=== PATIENT | male | born 1945 | race Caucasian/White ===

== ENCOUNTER → 2019-12-19 | Outpatient (CLI) | payer MEDICARE, OTHER ==
--- NOTE | 2019-12-19 09:24 | CT ---
EXAMINATION TYPE: CT angio abdomen pelvis DATE OF EXAM: 12/19/2019 COMPARISON: None HISTORY: AAA CT DLP: 5.6 mGycm CONTRAST: CTA abdominal aorta with 3-D reconstruction is performed without Oral Contrast and without and with IV Contrast, patient injected with 100 mL of Isovue 370. Contrast CTA of the abdominal aorta was performed from the lung bases through the base of the pelvis. 3-D reconstruction imaging obtained at a separate workstation. CONTRAST CT ABDOMEN AND PELVIS ABDOMINAL AORTA: Infrarenal abdominal aortic aneurysm measuring 4.3 cm AP dimension. Mild mural throm bus seen. No complicating factors such as dissection. Celiac, SMA and CHRIS vessels are patent as are t he renal arteries. Atheromatous change at the origin of the left renal artery. No dissection. Iliac vessels are symmetric and patent. LIVER/GB- No significant abnormality is seen. There is evidence of cholelithiasis. PANCREAS- No significant abnormality is seen. SPLEEN- No significant abnormality is seen. ADRENALS- No significant abnormality is seen. KIDNEYS/BLADDER- No significant abnormality is seen. BOWEL-moderate sigmoid diverticulosis without diverticulitis. GENITAL ORGANS: No gross abnormality seen. LYMPH NODES- No greater than 1cm abdominal or pelvic lymph nodes are appreciated. OSSEOUS STRUCTURES- No significant abnormality is seen. OTHER- No significant abnormality is seen. IMPRESSION- Uncomplicated infrarenal abdominal aortic aneurysm.
== END | disposition home or self-care (01) ==
LOC: RADCTMAIN 07:38
PROVIDERS: ATTEND Thoracic Surgery (Cardiothoracic Vascular Surgery)
DX: I71.4 Abdominal aortic aneurysm, without rupture (principal)
CPT/HCPCS: 82565; 84520; 36415; 74174; Q9967

== ENCOUNTER → 2022-07-24 | Outpatient (CLI) | payer MEDICARE, OTHER ==
--- NOTE | 2022-07-24 14:50 | CT ---
EXAMINATION TYPE: CT angio abdomen pelvis CT DLP: 2026.2 mGycm, Automated exposure control for dose reduction was used. DATE OF EXAM: 07/24/2022 2:26 PM COMPARISON: CTA abdomen pelvis 07/24/2022 CLINICAL INDICATION:Male, 76 years old with history of I71.4 INFRARENAL AAA; Abdominal aortic aneurys m TECHNIQUE: CTA abdominal aorta with 3-D reconstruction is performed without Oral Contrast and withou t and with IV Contrast, patient injected with 100 mL of Isovue 370. Contrast CTA of the abdominal aorta was performed from the lung bases through the base of the pelvis. 3-D reconstruction imaging obtained at a separate workstation. FINDINGS: CTA Abdomen and pelvis: Infrarenal abdominal aortic aneurysm has increased in size measuring 5.8 x 5. 7 cm in AP by transverse dimensions. Previously measured up to 4.3 cm in AP dimension. No complicatin g factors such as dissection. Celiac, SMA and CHRIS vessels are patent as are the renal arteries. Mild atelectatic calcification at the origin of these vessels. The bilateral iliac vessels are patent with atherosclerotic calcification. VISCERA: The liver, spleen, adrenal glands, kidneys, pancreas, and gallbladder are not optimally enha nced due the arterial phase utilized. LIVER: Unremarkable GALLBLADDER AND BILE DUCTS: Contracted gallbladder with cholelithiasis. PANCREAS: Unremarkable. SPLEEN: Scattered calcified granulomas. ADRENAL GLANDS: Unremarkable. KIDNEYS AND URETERS: No evidence of hydronephrosis or renal calculus. 2.5 cm heterogenous enhancing m ass within the mid to lower pole right kidney (series 6, image 112). Retrospectively this appears to be stable to marginally increase in size from prior examination 2019. The kidneys enhance symmetrical ly. Medial right mid kidney stable 1.3 cm cyst. PELVIS BLADDER: Unremarkable REPRODUCTIVE: Prostate is enlarged in size measuring 5.0 cm in transverse dimension. ABDOMEN & PELVIS STOMACH AND BOWEL: Stomach and duodenum are unremarkable. Pancolonic diverticulosis without evidence for acute diverticulitis. The appendix is within normal limits. No evidence of bowel obstruction. PERITONEUM: No evidence of pneumoperitoneum or free fluid. VASCULATURE: No evidence of aortic aneurysm. MUSCULOSKELETAL: No acute osseous abnormalities. No aggressive osseous lesions. Flowing anterior oste ophytosis of the thoracolumbar spine consistent with DISH. Multilevel degenerative changes of visuali zed spine with prominent anterior osteophytes at L3-L5. LYMPH NODES: No gross evidence for lymphadenopathy. SOFT TISSUE/ABDOMINAL WALL: Fat filled left inguinal hernia. LOWER CHEST: Mild cardiomegaly. Moderate coronary artery calcifications. The visualized lungs are barbara ar. IMPRESSION 1. Increased size of infrarenal abdominal aortic aneurysm measuring up to 5.8 cm, previously 4.3 cm. Vascular surgery consultation is recommended. 2. Right renal heterogenous enhancing mass measuring up to 2.5 cm. This is suspicious for renal cell carcinoma. Urology consult is recommended. 3. Pancolonic diverticulosis without evidence for acute diverticulitis. 4. Cholelithiasis.
== END | disposition home or self-care (01) ==
LOC: RADCTMAIN 09:00
PROVIDERS: ATTEND Surgery
DX: I71.43 Infrarenal abdominal aortic aneurysm, without rupture (principal); K57.30 Diverticulosis of large intestine without perforation or abscess without bleeding; K80.20 Calculus of gallbladder without cholecystitis without obstruction; I71.40 Abdominal aortic aneurysm, without rupture, unspecified; N28.89 Other specified disorders of kidney and ureter
CPT/HCPCS: 82565; 84520; 36415; 74174; Q9967

== ENCOUNTER → 2022-09-12 | Outpatient (CLI) | payer MEDICARE, OTHER ==
[2022-09-12 09:30] LABS: HCT 42.4 % (39.0-53.0); HGB 14.2 gm/dL (13.0-17.5); MCH 30.7 pg (25.0-35.0); MCHC 33.4 g/dL (31.0-37.0); MCV 92.1 fL (80.0-100.0); Mean Platelet Volume 7.5; Platelet Count 195 k/uL (150-450); RBC 4.61 m/uL (4.30-5.90); WBC 6.3 k/uL (3.8-10.6)
[2022-09-12 09:45] LABS: African American GFR (CKD) 81 (>60 ml/min/1.73 sqM); Anion Gap 7 mmol/L; Blood Urea Nitrogen 14 mg/dL (9-20); Carbon Dioxide 31 mmol/L (22-30); Chloride 99 mmol/L (98-107); Non-African American GFR(CKD) 70 (>60 ml/min/1.73 sqM); Potassium 4.4 mmol/L (3.5-5.1); Sodium 137 mmol/L (137-145)
== END | disposition home or self-care (01) ==
LOC: LABWHC1 09:06
PROVIDERS: ATTEND Internal Medicine Interventional Cardiology
DX: Z01.812 Encounter for preprocedural laboratory examination (principal); I34.0 Nonrheumatic mitral (valve) insufficiency; I35.1 Nonrheumatic aortic (valve) insufficiency
CPT/HCPCS: 80051; 82565; 84520; 85027

== ENCOUNTER 2022-09-15 07:44 | Day surgery (SDC) | payer MEDICARE, OTHER ==
[~2022-09-15 07:44] MED LIST: ALPRAZolam 0.25 MG TAB PO PRN; ALPRAZolam 0.5 MG TAB PO PRN; ASPIRIN 325 MG TAB PO STA; ATORVASTATIN 80 MG TAB PO STA; HEPARIN SODIUM,PORCINE 10,000 UNIT in SODIUM CHLORIDE 0.9% 1,000 ML IRRIGATION PRN; HEPARIN SODIUM,PORCINE 2,500 UNIT in SODIUM CHLORIDE 0.9% 250 ML IRRIGATION PRN; NITROGLYCERIN SL TABS 0.4 MG TAB SUBLINGUAL PRN; SODIUM CHLORIDE 0.9% 1,000 ML in EMPTY BAG 1 BAG IV SCH
[2022-09-15 08:20] VITALS: TEMP 97.4
[2022-09-15] MEDS ORDERED: HEPARIN SODIUM 1,000 UN/ML (10ML VL) ONE (09:30)
[2022-09-15] MEDS ORDERED: fentaNYL (PF) 50 MCG/ML 2 ML AMP ONE (09:30)
[2022-09-15] MEDS: BENZOCAINE SPRAY 1 CAN MUCOUS MEM ONE ×2 (09:30→09:45)
[2022-09-15] MEDS ORDERED: VERAPAMIL 2.5 MG/ML 2 ML AMP ONE (09:30)
[2022-09-15] MEDS ORDERED: SODIUM CHLORIDE 0.9% 1,000 ML IV ONE ×2 (09:37→09:38)
[2022-09-15] MEDS: fentaNYL (PF) 50 MCG/ML 2 ML AMP IVP ONE ×2 (09:45→10:08)
[2022-09-15] MEDS ORDERED: MIDAZOLAM 2 MG/2 ML VIAL IVP ONE ×2 (09:45→09:49)
[2022-09-15] MEDS ORDERED: IV FLUID CONTINUATION 950 ML IV ONE (10:00)
--- NOTE | 2022-09-15 10:01 | P.PCN ---
Date of Procedure: 09/15/22 Operative Findings: TRANSESOPHAGEAL ECHOCARDIOGRAM DRUM BUILDER: NIVIA RASCON MD, RPVI INDICATION: Valvular heart disease SEDATION: Conscious sedation COMPLICATION: None LEVEL OF SEDATION Moderate to sedation length of 12 minutes PROCEDURE DESCRIPTION: After obtaining an informed consent, the patient was brought to transesophageal echocardiogram room. Pulse oximetry and heart monitors were attached to the patient. The patient throat was sprayed using lidocaine. The patient was turned into left lateral position. After that a bite guard was placed. After an appropriate conscious sedation was initiated, the transesophageal echocardiogram was advanced through a bite guard into the mid esophagus. A 2-D echocardiogram images, color Doppler images, continuous wave images, pulse-wave images, of various cardiac structure were performed. After that the transesophageal echocardiogram probe was advanced into the stomach and fixed to obtain transgastric view was. The probe was brought into the mid esophagus. Inter-atrial septum was interrogated using 2D images, color Doppler images, and then contrast study. After that transesophageal echocardiogram was withdrawn out and upon withdrawing the descending thoracic aorta all the way up to the ar ch was evaluated. FINDING: The left ventricular dimension and systolic function appeared to be within normal limits with an ejection fraction of 50-55%. The right ventricle appeared to be of normal size and function. The left atrium and right atrium are dilated. The interatrial septum appeared to be intact. The aortic valve is trileaflet valve with evidence of severe aortic regurgitation and reversal flow in the descending aorta was identified. The mitral valve appeared to be mildly thickened with prolapsing of the posterior mitral leaflet and moderate mitral regurgitation. Normal tricuspid valve and pulmonic valve. CONCLUSION: 1. Trileaflet aortic valve with severe aortic regurgitation and evidence of reversal flow in the descending aorta 2. Prolapsing of the posterior mitral leaflet with moderate mitral regurgitation 3. Normal biventricular dimension and systolic function 4. Moderate biatrial enlargement 5. Intact interatrial septum 6. No evidence of pericardial effusion
[2022-09-15] MEDS ORDERED: LIDOCAINE 1% INJ 10MG/ML (5 ML VIAL-PF) SQ ONE (10:04)
[2022-09-15] MEDS ORDERED: VERAPAMIL SYRINGE (5 MG/10 ML) INTRAARTER ONE (10:05)
[2022-09-15] MEDS ORDERED: HEPARIN SODIUM 1,000 UN/ML (10ML VL) IVP ONE (10:07)
[2022-09-15] MEDS ORDERED: HYDROmorphone 0.5 MG/0.5 ML SYRINGE IVP ONE (10:14)
[2022-09-15] MEDS ORDERED: IOPAMIDOL-370 100ML BTL INJ ONE ×2 (10:20→10:28)
[2022-09-15] MEDS ORDERED: RX INFO: IV CONTRAST WAS GIVEN 1 EACH MISC MISCELLANE PRN (10:29)
[2022-09-15] MEDS ORDERED: SODIUM CHLORIDE 0.9% 1,000 ML IV SCH (10:30)
--- NOTE | 2022-09-15 10:36 | P.PCN ---
Date of Procedure: 09/15/22 Operative Findings: CARDIAC CATHETERIZATION PERFORMING PHYSICIAN: Alfredo Sánchez MD, RPVI PROCEDURE PERFORMED: 1. Selective right and left coronary angiogram 2. Left heart catheterization 3. FFR of the RCA 4. Aortic root angiogram INDICATION: Valvular heart disease COMPLICATION: None APPROACH: Right radial artery LEVEL OF SEDATION: Moderate with a sedation length of 23 minutes PROCEDURE DESCRIPTION: After obtaining an informed consent, the patient was brought to cardiac label cutter. Local anesthesia was performed using lidocaine subcutaneously. The right radial artery was cannulated using Seldinger technique, the guidewire passed e asily, following that we advanced a 5-[place] sheath dilator assembly, the wire and dilator were removed and sheath was flushed. Following that, 2 mg of verapamil along with 5000 unit heparin were given. Selective right and left coronary angiogram using a 6-[place] JR4 and JL 3.5 catheters. Following that we did left heart catheterization using 6-[place] pigtail catheter. Aortic root angiogram was performed using the 6-[place] pigtail catheter After that we did an FFR of the RCA The procedure was completed there was no complication. SELECTIVE CORONARY ANGIOGRAM: The right coronary artery: Large-caliber vessel and a dominant vessel. Its a calcified vessel as well. The mid RCA has intermediate lesion appears to be in the range of 60%. We did iFR and that came in to be nonischemic and 0.95 Left main: Calcified was mild disease only. Bifurcates into an LCx and LAD The left circumflex: Large-caliber vessel and a codominant vessel. The left circumflex system has mild disease only. Gives rises into an OM1 and OM 2 and both appeared to be angiographically normal The left anterior descending artery: The proximal LAD appeared to have mild disease only. The mid LAD does have a critical lesion appears to be in the range of 80-90%. The LAD distally has another critical lesion appeared to be in the range of 80-90%. The LAD gives rises into the first diagonal branch which is a large caliber vessel was mild to moderate diffuse disease and second diagonal branch which has an ostial lesion appeared to be in the range of 80-90% HEMODYNAMICS: The old the EDP was 24 mmHg was no significant gradient across aortic valve THE AORTIC ROOT ANGIOGRAM: That was performed in the TAMAZIGHT projection and using a power injection. There is 2+ aortic insufficiency identified iFR OF THE RCA After zeroing the Doppler wire and equalizing between the Doppler wire and the guiding catheter which was JR4 guiding catheter with did advanced a Doppler wire distal to the lesion in the mid RCA. We did an iFR and that came in to be mary schemic and 0.95. CONCLUSION: 1. Intermediate lesion involving the mid RCA. FFR came in to be nonischemic 2. Critical disease involving the mid and distal left anterior descending artery 3. 2+ aortic insufficiency on the aortic root angiogram
[2022-09-15] MEDS ORDERED: hydrALAZINE HCL 20 MG/ML 1 ML VIAL IVP STA (10:55)
[2022-09-15] MEDS ORDERED: hydrALAZINE HCL 20 MG/ML 1 ML VIAL ONE (11:01)
[2022-09-15 12:54] VITALS: BP 168/75; PULSE 64; RESP 18
== END 2022-09-15 13:50 | disposition home or self-care (01) ==
LOC: CATHCVL 07:44
PROVIDERS: ATTEND Internal Medicine Interventional Cardiology
DX: I08.0 Rheumatic disorders of both mitral and aortic valves (principal); Z88.0 Allergy status to penicillin
CPT/HCPCS: 93312; 93320; 93325; 93458; 93567; 93799; C1887; C1769 ×2; C1894; J2250; J0360; J2001; J3010; J1644; J1170; Q9967

== ENCOUNTER → 2023-01-10 | Outpatient (CLI) | payer MEDICARE, OTHER ==
[2023-01-10 12:44] LABS: African American GFR (CKD) >90 (>60 ml/min/1.73 sqM); Blood Urea Nitrogen 14 mg/dL (9-20); Non-African American GFR(CKD) 82 (>60 ml/min/1.73 sqM)
--- NOTE | 2023-01-11 07:48 | CT ---
EXAMINATION TYPE: CT angio abd aorta w/Runoff CT DLP: 2780.40 mGycm, Automated exposure control for dose reduction was used. DATE OF EXAM: 01/10/2023 2:23 PM COMPARISON: 07/24/2022, 12/15/2022, and 02/27/2020 CLINICAL INDICATION:Male, 77 years old with history of I71.40 ABDOMINAL AORTIC ANEURYSM; PHH, abdomin al aortic aneurysm TECHNIQUE: Multiple thin slice sub-millimeter images were obtained after administration of contrast. 3-D reconstructed images and maximum intensity projection images were obtained. CT angio abd aorta w /Runoff CT Contrast: Contrast used:100mL mL of Isovue 370 with IV Contrast, Oral contrast used: None FINDINGS: CTA Abdomen and pelvis: No evidence for intramural hematoma on noncontrast imaging. Postcontrast imag ing demonstrates aortobiiliac stent graft which appears patent. No evidence for endoleak. Celiac axis , superior mesenteric artery and bilateral renal arteries are patent. The excluded lumen of the infra renal abdominal aortic aneurysm measures up to 6.1 x 6.2 cm. This has progressed from prior on 023 where it measured 5.7 x 6.0 cm CTA Lower extremities: Right: The common femoral and superficial femoral arteries are patent. The popliteal artery is patent . Anterior and posterior tibial arteries as well as the peroneal artery are patent. The anterior tibi al artery crosses the ankle. The posterior tibial artery is diminutive and contrast is not definitive ly seen within the lumen. Left: The common femoral and superficial femoral arteries are patent. The popliteal artery is patent. Anterior and posterior tibial arteries as well as the peroneal artery are patent. The anterior tibia l artery crosses the ankle. The posterior tibial artery is diminutive and contrast is not definitivel y seen within the lumen. LOWER CHEST: No evidence of focal consolidation, pneumothorax or pleural effusion. LIVER: Unremarkable GALLBLADDER AND BILE DUCTS: Gallstone present within the lumen of the neck. PANCREAS: Unremarkable. SPLEEN: Unremarkable. ADRENAL GLANDS: Unremarkable. KIDNEYS AND URETERS: Right renal enhancing mass measuring 2.5 cm similar to prior. Simple appearing r ight renal cyst. No evidence of hydronephrosis or renal calculus. The ureters are unremarkable. PELVIS BLADDER: Unremarkable REPRODUCTIVE: Unremarkable. ABDOMEN & PELVIS STOMACH AND BOWEL: No evidence of bowel obstruction. PERITONEUM: No evidence of pneumoperitoneum or free fluid. VASCULATURE: No evidence of aortic aneurysm. MUSCULOSKELETAL: No acute osseous abnormalities LYMPH NODES: No gross evidence for lymphadenopathy. SOFT TISSUE/ABDOMINAL WALL: Fat-containing inguinal hernia on the left greater than right. IMPRESSION 1. Fusiform infrarenal aortic aneurysm with aortobiiliac stent graft in place and intact. No evidenc e for endoleak. No evidence of vascular occlusion. 2. Atherosclerotic disease involving abdominal aorta and lower extremity vasculature. 3. The anterior tibial artery crosses the ankle bilaterally, that posterior tibial arteries bilateral ly are diminutive. 4. Similar enhancing right renal mass measuring up to 2.5 cm. If not already performed urologic consu ltation recommended. 5. Cholelithiasis. 6. Colonic diverticulosis.
== END | disposition home or self-care (01) ==
LOC: RADCTMAIN 12:05
PROVIDERS: ATTEND Surgery
DX: I71.43 Infrarenal abdominal aortic aneurysm, without rupture (principal); N28.89 Other specified disorders of kidney and ureter; K80.20 Calculus of gallbladder without cholecystitis without obstruction; K57.30 Diverticulosis of large intestine without perforation or abscess without bleeding; I70.0 Atherosclerosis of aorta
CPT/HCPCS: 82565; 84520; 75635; 36415; Q9967

== ENCOUNTER → 2023-08-08 | Outpatient (CLI) | payer MEDICARE, OTHER ==
[2023-08-08 12:58] LABS: African American GFR (CKD) 82 (>60 ml/min/1.73 sqM); Blood Urea Nitrogen 18 mg/dL (9-20); Non-African American GFR(CKD) 71 (>60 ml/min/1.73 sqM)
--- NOTE | 2023-08-08 14:21 | CT ---
EXAMINATION TYPE: CT abdomen wo/w con DATE OF EXAM: 08/08/2023 COMPARISON: 01/10/2023 INDICATION: Kidney Cancer DLP: 1771.70 mGycm, Automated exposure control for dose reduction was used. CONTRAST: 100 ml mL of Isovue 300. Study performed with Oral Contrast TECHNIQUE: Axial images were obtained from above the diaphragm to the pubic rami in the axial plane a t 5 mm thick sections. Reconstructed images are reviewed on the computer in the coronal plane. FINDINGS: Limited CT sections are obtained the lung bases. The lung bases are clear. Coronary artery calcific ation is present. CT ABDOMEN: Liver: Normal Spleen: Scattered granulomata within the spleen. Pancreas: Normal Adrenal glands: The adrenal glands are normal. Gallbladder: Gallstones are present Kidneys: No masses are evident. No hydronephrosis is present. There is a small cyst on the medial m id right kidney. No renal stones are evident. Renal vascular calcifications are present Aorta: Vascular calcification is within the aorta. Extensor through a prior abdominal aortic aneurys m. Inferior vena cava: Normal. Loops of bowel within the abdomen and upper pelvis are normal. Multiple diverticuli are through the sigmoid colon. There are loops of bowel which are incompletely distended or lack oral contrast limi ting their evaluation. IMPRESSION: 1. No endovascular leak stented aorta. 2. No suspicious renal masses to suggest recurrent or metastatic neoplasm. Consider evaluation with u ltrasound. 3. Cholelithiasis
== END | disposition home or self-care (01) ==
LOC: RADCTMAIN 12:13
PROVIDERS: ATTEND Urology
DX: K80.20 Calculus of gallbladder without cholecystitis without obstruction (principal); D41.01 Neoplasm of uncertain behavior of right kidney
CPT/HCPCS: 82565; 84520; 74170; 36415; Q9967

== ENCOUNTER → 2024-07-19 | Outpatient (CLI) | payer MEDICARE, OTHER | END | disposition home or self-care (01) | LOC: RADMRIMAIN 07:37 | PROVIDERS: ATTEND Urology | DX: Z53.9 Procedure and treatment not carried out, unspecified reason (principal) ==

== ENCOUNTER → 2024-08-13 | Outpatient (CLI) | payer MEDICARE, OTHER ==
--- NOTE | 2024-08-13 18:47 | CT ---
EXAMINATION TYPE: CT chest wo con CT DLP: 452.10 mGycm, Automated exposure control for dose reduction was used. DATE OF EXAM: 08/13/2024 4:57 PM COMPARISON: CT abdomen 08/08/2023 CLINICAL INDICATION:Male, 78 years old with history of R05.9 COUGH, UNSPECIFIED; PHH, intermittent pr oductive cough for months TECHNIQUE: Multiple axial images were obtained through the chest without IV contrast. Lack of IV or o ral contrast limits evaluation of solid and hollow organ viscera. . Coronal and sagittal reformats re viewed. FINDINGS: LUNGS/ PLEURA: No pneumothorax or focal consolidation. Small left pleural effusion. Left upper lobe p erihilar calcified granulomas. AIRWAY: Patent and unremarkable.. HEART: Cardiomegaly is demonstrated with dilatation of the left ventricle and left atrium. . No peric ardial effusion. Mild coronary artery calcifications present. MEDIASTINUM: No gross evidence of adenopathy. VASCULATURE: No aortic aneurysm. Atherosclerotic calcification of the aorta and its branches. MUSCULOSKELETAL: No acute osseous abnormalities.DISH of the visualized spine. SOFT TISSUES/LYMPH NODES: Unremarkable. LOWER NECK: No significant findings. UPPER ABDOMEN: Please see CT abdomen from the same date for findings. IMPRESSION: Small left pleural effusion. No focal consolidation or suspicious airspace opacities. [facility], , 08/13/2024 6:45 PM
== END | disposition home or self-care (01) ==
LOC: RADCTMAIN 14:56
PROVIDERS: ATTEND Family Medicine
DX: D41.01 Neoplasm of uncertain behavior of right kidney (principal); J90 Pleural effusion, not elsewhere classified
CPT/HCPCS: 71250

== ENCOUNTER → 2024-08-13 | Outpatient (CLI) | payer MEDICARE, OTHER ==
[2024-08-13 16:08] LABS: African American GFR (CKD) 70 (>60 ml/min/1.73 sqM); Blood Urea Nitrogen 18 mg/dL (9-20); Non-African American GFR(CKD) 60 (>60 ml/min/1.73 sqM)
--- NOTE | 2024-08-13 21:42 | CT ---
EXAMINATION TYPE: CT abdomen wo/w con CT DLP: 1958.50 mGycm, Automated exposure control for dose reduction was used. DATE OF EXAM: 08/13/2024 4:57 PM COMPARISON: CT abdomen 08/08/2023, CTA abdominal aorta with runoff 01/10/2023, CT abdomen and pelvis 07/08, 12/19/2019 CLINICAL INDICATION:Male, 78 years old with history of D41.01 KIDNEY CANCER; tumor on right kidney TECHNIQUE: Standard CT of the abdomen before and after the uneventful administration of 80 mL of Is ovue-300 intravenously. Oral contrast was administered. Coronal and sagittal reformats were performed . FINDINGS: LOWER CHEST: Please see dedicated CT chest for findings ABDOMEN LIVER: Unremarkable GALLBLADDER AND BILE DUCTS: Cholelithiasis. No biliary ductal dilatation. PANCREAS: Unremarkable. SPLEEN: Scattered calcified granulomas. ADRENAL GLANDS: Unremarkable. KIDNEYS AND URETERS: No evidence of hydronephrosis or renal calculus. The kidneys enhance symmetrical ly. Stable medial right upper pole simple appearing renal 1.5 cm cyst. No follow-up for this simple a ppearing cyst. Stable right renal lower pole 2.5 cm enhancing lesion (series 9, image 46). Contrast i s demonstrated within both collecting systems and proximal ureters on delayed phase. Duplicated left collecting system. STOMACH AND BOWEL: Stomach and duodenum are unremarkable. Pancolonic diverticulosis without evidence for acute diverticulitis. No evidence of bowel obstruction. PERITONEUM: No evidence of pneumoperitoneum or free fluid. VASCULATURE: Postsurgical changes from aortobiiliac stent graft beginning at the hiatus. The excluded [place] aneurysm sac measures 6.2 x 6.0 cm. Previous measures 6.1 x 6.0 cm. There is hyperdensity wit hin the [place] aneurysm sac that changes from the noncontrast phase to the portal venous phase and th en to the delayed phase (series 9, image 56). Retroaortic left renal vein. MUSCULOSKELETAL: No acute osseous abnormalities. No aggressive osseous lesion. DISH of the thoracolum bar spine. Moderate multilevel degenerative disease with large anterior osteophyte at L4-L5. LYMPH NODES: No evidence for lymphadenopathy. SOFT TISSUE/ABDOMINAL WALL: Unremarkable IMPRESSION: 1. Stable right renal enhancing mass measuring up to 2.5 cm from prior examination. This is only em inally increased in size by approximately 2 mm from 2020 exam. No lymphadenopathy identified. 2. Postsurgical changes from aortobiiliac stent graft with stable to marginal increase in size of the excluded [place] aneurysm sac measuring up to 6.2 cm. There appears to be an endoleak, possibly type II. Consider further evaluation with CTA abdomen and pelvis. 3. Cholelithiasis. 4. Colonic diverticulosis without visualized acute diverticulitis. [facility], , 08/13/2024 9:40 PM
== END | disposition home or self-care (01) ==
LOC: RADCTMAIN 14:54
PROVIDERS: ATTEND Urology
DX: D41.01 Neoplasm of uncertain behavior of right kidney (principal); K80.20 Calculus of gallbladder without cholecystitis without obstruction; K57.30 Diverticulosis of large intestine without perforation or abscess without bleeding; Z98.890 Other specified postprocedural states
CPT/HCPCS: 82565; 84520; 74170; 36415; Q9967